=== PATIENT | female | born 1940 | race Caucasian/White ===

== ENCOUNTER 2020-01-30 08:20 | Day surgery (SDC) | payer MEDICARE, BC ==
[2020-01-30] VITALS (14 sets, daily range): BP systolic 128–183; BP diastolic 55–87
[~2020-01-30] VITALS: Ht 167.6 cm; Wt 46.6 kg
[2020-01-30] MEDS ORDERED: LOSA100T3 PO (08:59)
[2020-01-30] MEDS ORDERED: CHOL20004 PO (08:59)
[2020-01-30] MEDS ORDERED: OMEP40CA13 PO (08:59)
[2020-01-30] MEDS ORDERED: ANAS1TAB10 PO (08:59)
[2020-01-30] MEDS ORDERED: BETA1TAB20 PO (08:59)
[2020-01-30] MEDS ORDERED: METF500T PO (08:59)
[2020-01-30] MEDS ORDERED: NEBI5TAB10 PO (08:59)
[2020-01-30] MEDS ORDERED: NORMAL SALINE IV SCH (09:00)
[2020-01-30 09:17] LABS: BASOPHILS # (AUTO) 0.1 X10'3 (0-0.2); EOSINOPHILS # (AUTO) 0.1 X10'3 (0-0.9); EOSINOPHILS % (AUTO) 1.3 % (0-6); HEMATOCRIT 34.2 % (35.0-45.0); HEMOGLOBIN 11.3 g/dl (12.0-16.0); LYMPHOCYTES # (AUTO) 1.9 X10'3 (1.1-4.8); LYMPHOCYTES % (AUTO) 33.6 % (21-51); MEAN CORPUSCULAR HEMOGLOBIN 26.4 PG (27.0-31.0); MEAN PLATELET VOLUME 8.1 FL (7.4-10.4); MONOCYTES # (AUTO) 0.4 X10'3 (0-0.9); MONOCYTES % (AUTO) 6.9 % (2-12); NEUTROPHILS # (AUTO) 3.2 X10'3 (1.8-7.7); NEUTROPHILS % (AUTO) 57.2 % (42-75); PLATELET COUNT 152 X10'3 (140-440); RED BLOOD COUNT 4.28 X10'6 (4.20-5.60); RED CELL DISTRIBUTION WIDTH 15.8 % (11.5-14.5); WHITE BLOOD COUNT 5.6 X10'3 (4.5-11.0)
[2020-01-30 09:23] LABS: ALBUMIN 3.3 G/DL (3.4-5.0); ANION GAP 7 (8-16); BLOOD UREA NITROGEN 24 MG/DL (7-18); BUN/CREATININE RATIO 25.8 (6.6-38.0); CALCIUM 9.2 MG/DL (8.5-10.1); CHLORIDE 107 MMOL/L (99-107); CREATININE 0.93 MG/DL (0.40-0.90); GLUCOSE 162 MG/DL (70-104); POTASSIUM 4.2 MMOL/L (3.5-5.1); SODIUM 142 MMOL/L (135-145); TOTAL CARBON DIOXIDE 28.4 MMOL/L (24-32); eGFR 58 ML/MIN
[2020-01-30] MEDS ORDERED: midazolam 2 mg/2 ml injection ONE (10:20)
[2020-01-30] MEDS ORDERED: fentaNYL/PF 50MCG/1 ML 2ML syringe ONE (10:20)
[2020-01-30] MEDS ORDERED: HYDROcodone/acetaminophen 5mg/325mg tablet PO PRN (12:10)
[2020-01-30] MEDS ORDERED: morphine 4 MG/ML inj SYRINge IV PRN (12:10)
== END 2020-01-30 14:45 | disposition home or self-care (01) ==
LOC: SSTAY O 08:20
PROVIDERS: ATTEND Radiology Vascular & Interventional Radiology
DX: R91.8 Other nonspecific abnormal finding of lung field (principal); I10 Essential (primary) hypertension; E11.9 Type 2 diabetes mellitus without complications; Z85.72 Personal history of non-Hodgkin lymphomas; M19.90 Unspecified osteoarthritis, unspecified site; Z90.710 Acquired absence of both cervix and uterus; Z98.890 Other specified postprocedural states; Z98.41 Cataract extraction status, right eye; Z98.42 Cataract extraction status, left eye; Z79.84 Long term (current) use of oral hypoglycemic drugs; Z79.899 Other long term (current) drug therapy; Z85.42 Personal history of malignant neoplasm of other parts of uterus
CPT/HCPCS: 10009; 36415; 71045; 80048; 82948; 85025; 85610; 88341; 88342; J2250; J3010; J7030; 32405; 77013; 88173; 88305